=== PATIENT | male | born 1970 | race American Indian/Alaskan Native ===

== ENCOUNTER 2017-03-21 01:46 | Emergency (ER) | payer OTHER ==
[2017-03-21 02:30] LABS: Basophils % (Auto) 0.5 % (0.0-1.8); Hemoglobin 13.9 gm/dl (11.8-15.2); Mean Corpuscular HGB Conc 33 % (32-34); Mean Corpuscular Hemoglobin 29 pg (28-32); Mean Corpuscular Volume 87 fl (84-94); Platelet Count 205 K/mm3 (140-440); Red Blood Count 4.81 M/mm3 (3.65-5.03); Red Cell Distribution Width 14.8 % (13.2-15.2); White Blood Count 10.5 K/mm3 (4.5-11.0)
[2017-03-21 02:55] LABS: Alanine Aminotransferase 15 units/L (7-56); Albumin 4.1 g/dL (3.9-5); Albumin/Globulin Ratio 1.6 %; Alkaline Phosphatase 61 units/L (35-129); Anion Gap 16 mmol/L; BUN/Creatinine Ratio 14; Blood Urea Nitrogen 15 mg/dL (9-20); Calcium 9.4 mg/dL (8.4-10.2); Carbon Dioxide 27 mmol/L (22-30); Chloride 100.6 mmol/L (98-107); Glucose 99 mg/dL (75-100); Lipase 21 units/L (13-60); Potassium 3.9 mmol/L (3.6-5.0); Sodium 140 mmol/L (137-145); Total Protein 6.7 g/dL (6.3-8.2)
[2017-03-21 03:10] LABS: Bilirubin,Urine NEG (Negative); Blood,Urine NEG (Negative); Ketones,Urine NEG (Negative); Leukocyte Esterase,Urine NEG (Negative); Mucus,Urine FEW /HPF; Nitrite,Urine NEG (Negative); Protein,Urine <15 mg/dL mg/dL (Negative); WBC,Urine < 1.0 /HPF (0.0-6.0)
[2017-03-21] MEDS ORDERED: ZOFRAN IV ONE (04:58)
[2017-03-21] MEDS ORDERED: TORADOL IV ONE (04:58)
[2017-03-21] MEDS ORDERED: NACL 0.9% 1000 ML 1,000 ML IV ONE (04:58)
[2017-03-21] MEDS ORDERED: NACL ONE (04:59)
[2017-03-21] MEDS ORDERED: ZOFRAN ONE (05:00)
[2017-03-21] MEDS ORDERED: TORADOL ONE (05:00)
[2017-03-21] MEDS ORDERED: NACL 0.9% 1000 ML 1,000 ML ONE (05:01)
--- NOTE | 2017-03-21 05:11 | Emergency Department Report ---
ED Abdominal Pain HPI - General Chief Complaint: Abdominal Pain Stated Complaint: ABD PAIN; ELEVATED BP Time Seen by Provider: 03/21/17 04:51 Source: patient Mode of arrival: Ambulatory Limitations: No Limitations - History of Present Illness Initial Comments: This is a 46-year-old male nontoxic, well nourished in appearance, no acute signs of distress presents to the ED with c/o of abdominal pain, nausea, vomiting x1 day. Patient describes abdominal pain as cramping diffuse with level of 8/10. Patient stated prior to the symptoms he was eating out in 2 different restaurants. Patient denies any trauma to the region. Patient stated vomit consisted of food. Patient denies any fever, chills, headache, stiff neck, chest pain, shortness of breath, numbness, tingling. Patient denies any allergies or past medical history. MD Complaint: abdominal pain, other (nausea/vomiting) -: Gradual, days(s) (1) Location: diffuse Radiation: none Migration to: no migration Severity: mild Severity scale (0 -10): 8 Quality: cramping Consistency: constant Improves With: nothing Worsens With: nothing Context: possible food poisoning Associated Symptoms: nausea, vomiting. denies: diarrhea, fever, chills, constipation, dysuria, hematemesis, hematochezia, melena, hematuria, anorexia, syncope - Related Data Previous Rx's Medication Instructions Recorded Last Taken Type Ondansetron [Zofran Odt] 4 mg PO Q8H #20 tab.rapdis 03/21/17 Unknown Rx Allergies Allergy/AdvReac Type Severity Reaction Status Date / Time No Known Allergies Allergy Unverified 03/21/17 02:03 ED Review of Systems ROS: Stated complaint: ABD PAIN; ELEVATED BP Other details as noted in HPI Constitutional: denies: chills, fever Eyes: denies: eye pain, eye discharge, vision change ENT: denies: ear pain, throat pain Respiratory: denies: cough, shortness of breath, wheezing Cardiovascular: denies: chest pain, palpitations Endocrine: no symptoms reported Gastrointestinal: abdominal pain, nausea, vomiting. denies: diarrhea, constipation Genitourinary: denies: urgency, dysuria Musculoskeletal: denies: back pain, joint swelling, arthralgia Skin: denies: rash, lesions Neurological: denies: headache, weakness, paresthesias Psychiatric: denies: anxiety, depression Hematological/Lymphatic: denies: easy bleeding, easy bruising ED Past Medical Hx - Past Medical History Previous Medical History?: No - Surgical History Additional Surgical History: Left hand, Left jaw - Social History Smoking Status: Current Some Day Smoker Substance Use Type: None - Medications Home Medications: Home Medications Medication Instructions Recorded Confirmed Last Taken Type Ondansetron [Zofran Odt] 4 mg PO Q8H #20 tab.rapdis 03/21/17 Unknown Rx ED Physical Exam - General Limitations: No Limitations General appearance: alert, in no apparent distress - Head Head exam: Present: atraumatic, normocephalic, normal inspection - Eye Eye exam: Present: normal appearance, PERRL, EOMI. Absent: scleral icterus, conjunctival injection, nystagmus, periorbital swelling, periorbital tenderness Pupils: Present: normal accommodation - ENT ENT exam: Present: normal exam, normal orophraynx, mucous membranes moist, TM's normal bilaterally, normal external ear exam - Neck Neck exam: Present: normal inspection, full ROM. Absent: tenderness, meningismus, lymphadenopathy, thyromegaly - Respiratory Respiratory exam: Present: normal lung sounds bilaterally. Absent: respiratory distress, wheezes, rales, rhonchi, stridor, chest wall tenderness, accessory muscle use, decreased breath sounds, prolonged expiratory - Cardiovascular Cardiovascular Exam: Present: regular rate, normal rhythm, normal heart sounds. Absent: bradycardia, tachycardia, irregular rhythm, systolic murmur, diastolic murmur, rubs, gallop - GI/Abdominal GI/Abdominal exam: Present: soft, tenderness (diffuse), normal bowel sounds. Absent: distended, guarding, rebound, rigid, diminished bowel sounds - Expanded GI/Abdominal Exam Expanded GI/Abdominal exam: Absent: psoas sign, obturator sign, heel tap sign, Dia's sign, Rovsing's sign, tenderness at Mcburney's Point, ascites - Rectal Rectal exam: Present: deferred - Extremities Exam Extremities exam: Present: normal inspection, full ROM, normal capillary refill. Absent: tenderness, pedal edema, joint swelling, calf tenderness - Back Exam Back exam: Present: normal inspection, full ROM. Absent: tenderness, CVA tenderness (R), CVA tenderness (L), muscle spasm, paraspinal tenderness, vertebral tenderness, rash noted - Neurological Exam Neurological exam: Present: alert, oriented X3, CN II-XII intact, normal gait, reflexes normal - Psychiatric Psychiatric exam: Present: normal affect, normal mood - Skin Skin exam: Present: warm, dry, intact, normal color. Absent: rash ED Course Vital Signs 03/21/17 01:59 Temperature 98.1 F Pulse Rate 78 Respiratory 18 Rate Blood Pressure 134/94 O2 Sat by Pulse 97 Oximetry - Reevaluation(s) Reevaluation #1: 03/21/17 05:11 Patient is speaking in full sentences with no signs of distress noted. Reevaluation #2: 03/21/17 06:19 Patient tolerated by mouth challenge well with no signs of nausea vomiting. Patient stated symptoms of nausea and vomiting has subsided and abdominal pain also subsided. - Consultations Consultation #1: 03/21/17 06:20 Patient has been consulted with Dr. Allison about patient history, physical exam, and labs/imaging findings and agrees to discharge with follow-up ED Medical Decision Making - Lab Data Result diagrams: 03/21/17 02:20 03/21/17 02:20 - Medical Decision Making This is a 46-year-old male that presents with abdominal pain, nausea, and vomiting. PAtient is stable and was examined by me. CBC, CMP, UA, Lipase obtained within normal limits. CT of abd/pelvis with contrast obtained and dictated by radiologist. Patient has been consulted with Dr. Allison about patient histroy, physical exam, and labs and Ct fingdings and agrees discharge plan for care. Patient was notified of labs and ct results with no questions noted. Patient received 1L of NACL and zofran which patient stated symptoms of n/v subsided and patient feels much better. PO challange obtained and patient tolerated well with no nausea or vomiting. Patient was instructed to increase hydration. PAtient is discharge with Zofran. PAtient was instructed to Follow- up with a primary care doctor in 3-5 days or if symptoms worsen and continue return to emergency room as soon as possible. At time time of discharge, the patient does not seem toxic or ill in appearance. No acute signs of distress noted. Patient agrees to discharge treatment plan of care. No further questions noted by the patient. Critical care attestation.: If time is entered above; I have spent that time in minutes in the direct care of this critically ill patient, excluding procedure time. ED Disposition Clinical Impression: Abdominal pain Qualifiers: Abdominal location: generalized Qualified Code(s): R10.84 - Generalized abdominal pain Nausea and vomiting Qualifiers: Vomiting type: unspecified Vomiting Intractability: non-intractable Qualified Code(s): R11.2 - Nausea with vomiting, unspecified Disposition: - TO HOME OR SELFCARE Is pt being admited?: No Does the pt Need Aspirin: No Condition: Stable Instructions: Ondansetron (By mouth), Electrolyte Supplement (By mouth), Acute Nausea and Vomiting (ED), Abdominal Pain (ED) Additional Instructions: Follow-up with a primary care doctor/warehouse handler in 3-[address] findings or if symptoms worsen and continue return to emergency room as soon as possible. Increase hydration as much as possible Prescriptions: Ondansetron [Zofran Odt] 4 mg PO Q8H #20 tab.rapdis Referrals: [facility] [Outside] - 3-5 Days [facility] [Outside] - 3-5 Days PRIMARY MD RTEVON [Primary Care Provider] - 3-5 Days YOVANI SIMMONS MD [Staff Physician] - 3-5 Days [facility] [Provider Group] - 3-5 Days MILTON BUTCHER MD [Staff Physician] - 3-5 Days Forms: Work/School Release Form(ED)
--- NOTE | 2017-03-21 06:11 | Cat Scan Report ---
FINAL REPORT EXAM: CT ABDOMEN PELVIS W CON HISTORY: ABD PAIN TECHNIQUE: CT images are acquired through the Abdomen and Pelvis following intravenous administration of contrast. Transaxial, coronal and sagittal reformations are provided. PRIORS: None FINDINGS: Partially visualized intrathoracic contents are unremarkable. The liver, gallbladder, pancreas, spleen, and adrenal glands are unremarkable. Kidneys show no worrisome lesions, hydronephrosis, or calculi. Urinary bladder is unremarkable. Pyloric wall thickening without adjacent stranding or edema. Mild mucosal prominence seen within the duodenal bulb and descending duodenum. Small and large bowel are normal in caliber. Sigmoid diverticulosis without surrounding inflammatory findings. Appendix is normal. No free air, free fluid, or lymphadenopathy identified. Aorta is normal in course and caliber. Superficial soft tissues are remarkable for a small fat containing umbilical hernia measuring up to about 6 millimeters at the neck on axial series 3, image 99. No acute or aggressive appearing skeletal findings. IMPRESSION: Mucosal prominence and wall thickening suggested in the gastric pylorus and prominent duodenum may be secondary to ulcer disease or other inflammatory or infectious etiology. No obvious perforated ulcer, extraluminal fluid or pneumoperitoneum. Correlation with patient's symptoms is requested. Consider follow-up endoscopy as warranted.
[2017-03-21 06:30] VITALS: BP 130/87
== END 2017-03-21 06:30 | disposition home or self-care (01) ==
LOC: ED 01:46
DX: R10.84 Generalized abdominal pain (principal); R11.2 Nausea with vomiting, unspecified; F17.200 Nicotine dependence, unspecified, uncomplicated
CPT/HCPCS: 36415; 74177; 80053; 81001; 83690; 85025; 96361; 96374; 96375; 99284; J1885; J2405; J7030; Q9967

== ENCOUNTER 2019-08-30 07:31 | Emergency (ER) | payer SELFPAY ==
[2019-08-30 07:39] VITALS: BP 135/101
--- NOTE | 2019-08-30 08:15 | XRay Report ---
RIGHT SHOULDER 3 VIEWS INDICATION / CLINICAL INFORMATION: MAIN: Trauma, Rt shoulder pain. COMPARISON: None available. FINDINGS: No significant skeletal abnormality Signer Name: Jelani Nunez MD FACGiuliano Signed: 08/30/2019 8:11 AM Workstation Name: [id number]
[2019-08-30] MEDS ORDERED: KETOROLAC 30 MG/1 ML INJ IM ONE (08:36)
--- NOTE | 2019-08-30 08:39 | Emergency Department Report ---
HPI - General Chief Complaint: Shoulder Injury Time Seen by Provider: 08/30/19 08:35 - HPI HPI: 48-year-old -[place] male presents to the emergency department with a complaint of right shoulder pain since yesterday morning. The patient was playing with his children and reached for something and felt a "pop" and began having pain. He has decreased range of motion of the right upper extremity secondary to pain at the shoulder. He has not taken anything for symptoms prior to presentation. No significant past medical history. ED Past Medical Hx - Past Medical History Previous Medical History?: No - Surgical History Past Surgical History?: Yes Additional Surgical History: Left hand, Left jaw - Social History Smoking Status: Current Every Day Smoker Substance Use Type: None - Medications Home Medications: Home Medications Medication Instructions Recorded Confirmed Last Taken Type Ondansetron [Zofran Odt] 4 mg PO Q8H #20 tab.rapdis 03/21/17 Unknown Rx Ibuprofen [Motrin 800 MG tab] 800 mg PO Q8HR PRN #20 tablet 08/30/19 Unknown Rx ED Review of Systems ROS: Stated complaint: RIGHT SHOULDER PAIN Other details as noted in HPI Comment: All other systems reviewed and negative Constitutional: denies: chills, fever Respiratory: denies: shortness of breath Cardiovascular: denies: chest pain Musculoskeletal: arthralgia. denies: back pain, joint swelling Neurological: denies: numbness, paresthesias Physical Exam - Physical Exam Vital Signs: Vital Signs 08/30/19 07:37 Temperature 98.3 F Pulse Rate 73 Respiratory 20 Rate Blood Pressure 135/101 O2 Sat by Pulse 100 Oximetry Physical Exam: GENERAL: The patient is well-developed well-nourished. HENT: Normocephalic. Atraumatic. Patient has moist mucous membranes. EYES: Extraocular motions are intact. NECK: Supple. Trachea is midline. ABDOMEN: There is no abdominal distention. SKIN: Skin is warm and dry. NEURO: The patient is awake, alert, and oriented. The patient is cooperative. Normal speech. MUSCULOSKELETAL: There is tenderness to palpation to the right shoulder but no obvious deformity. The patient has pain with both passive and active range of motion including abduction and internal and external rotation. Radial pulse +2/4 and capillary refill less than 2 seconds to the affected right upper extremity. ED Course Vital Signs 05/25/20 07:37 Temperature 98.3 F Pulse Rate 73 Respiratory 20 Rate Blood Pressure 135/101 O2 Sat by Pulse 100 Oximetry ED Medical Decision Making - Radiology Data Radiology results: image reviewed interpreted by me: X-ray of the right shoulder does not show any fracture, dislocation, or any acute process. - Medical Decision Making Patient began having right shoulder pain yesterday while playing with his children after he reached out and felt a pop and suddenly began having pain. There is no obvious deformity. He is neurovascularly intact. X-ray does not show any fracture, dislocation, or any acute process. I have concern for a rotator cuff injury. The patient will follow-up with an orthopedist. He is in a arm sling and will remain there until follow-up with the orthopedist. He will return to the ER with any worsening of his symptoms or any acute distress. Critical Care Time: No Critical care attestation.: If time is entered above; I have spent that time in minutes in the direct care of this critically ill patient, excluding procedure time. ED Disposition Clinical Impression: Right shoulder pain Qualifiers: Chronicity: acute Qualified Code(s): M25.511 - Pain in right shoulder Disposition: DC-01 TO HOME OR SELFCARE Is pt being admited?: No Condition: Stable Instructions: Arthralgia (ED) Additional Instructions: Please follow-up with an orthopedist in the next few days. Return to the emergency department with any worsening of your symptoms or any acute distress. Prescriptions: Ibuprofen [Motrin 800 MG tab] 800 mg PO Q8HR PRN #20 tablet PRN Reason: Pain , Severe (7-10) Referrals: SCOTTY LESTER MD [Primary Care Provider] - 3-5 Days DIEGO DOMINGO MD [Staff Physician] - 3-[address] [facility] [Provider Group] - 3-5 Days Time of Disposition: 08:39
== END 2019-08-30 08:46 | disposition home or self-care (01) ==
LOC: ED 07:31
DX: M25.511 Pain in right shoulder (principal); F17.200 Nicotine dependence, unspecified, uncomplicated; Z79.899 Other long term (current) drug therapy; Z98.890 Other specified postprocedural states
CPT/HCPCS: 73030; 96372; 99283; J1885